=== PATIENT | male | born 1975 | race Native Hawaiian/Other Pacific Islander ===

== ENCOUNTER 2021-03-20 15:12 | Outpatient (CLI) | payer BC, OTHER | END 2021-03-20 19:27 | disposition home or self-care (01) | LOC: RAD 15:12 | PROVIDERS: ATTEND Family Medicine | DX: Z20.822 Contact with and (suspected) exposure to COVID-19 (principal) ==

== ENCOUNTER 2021-03-25 10:37 | Outpatient (CLI) | payer BC | END 2021-03-25 23:30 | disposition home or self-care (01) | LOC: RAD 10:37 | PROVIDERS: ATTEND Nurse Practitioner Family | DX: R07.81 Pleurodynia (principal) ==